=== PATIENT | male | born 1955 | race Caucasian/White ===

== ENCOUNTER 2019-04-05 20:03 | Emergency (ER) | payer OTHER ==
[2019-04-05] MEDS ORDERED: LIDOCAINE 1% MPF 5 ML VIAL ONE ×2 (20:45→21:22)
[2019-04-05] MEDS ORDERED: TETANUS & DIPHTHERIA TOX,ADULT 0.5 ML VIAL ONE (20:50)
[2019-04-05] MEDS ORDERED: AMOX/K CLAV 875 MG TAB ONE (20:50)
--- NOTE | 2019-04-05 21:28 | EDPHYS ---
Physician Documentation [facility] [place] Name: Bowen Kan Age: 63 yrs Sex: Male : 1955 Arrival Date: 04/05/2019 Time: 20:06 Bed 13 Private MD: Jasmina Packer ED Physician Lucy Rousseau HPI: 04/05 21:23 This 63 yrs old Male presents to ER via Ambulatory with complaints of Finger ma2 Injury. 21:23 Trauma demographics: County: The injury occurred in Location of Injury: The injury ma2 occurred at home. Associated injuries: The patient sustained no obvious injury, left index finger tip. Onset: The symptoms/episode began/occurred suddenly, 1 hour(s) ago. The patient has not experienced similar symptoms in the past. Historical: - Allergies: 20:17 No Known Allergies; aa1 - Home Meds: 20:17 Cialis oral oral [Active]; aa1 - PMHx: 20:17 Gastric Reflux; prostate cancer; aa1 - PSHx: 20:17 prostectomy; Knee surgery; aa1 - Immunization history:: Last tetanus immunization: unknown. - Social history:: Smoking status: Patient/guardian denies using tobacco, Patient/guardian denies using alcohol, street drugs, The patient lives with family. - Ebola Screening: : No symptoms or risks identified at this time. - Family history:: not pertinent. ROS: 21:23 Constitutional: Negative for fever, chills, and weight loss, Cardiovascular: Negative ma2 for chest pain, palpitations, and edema, Respiratory: Negative for shortness of breath, cough, wheezing, and pleuritic chest pain, Abdomen/GI: Negative for abdominal pain, nausea, diarrhea, and constipation. 21:23 MS/extremity: Positive for crush injury with laceration . 21:23 All other systems are negative. Exam: 21:23 Constitutional: This is a well developed, well nourished patient who is awake, alert, ma2 and in no acute distress. Chest/axilla: Normal chest wall appearance and motion. Nontender with no deformity. No lesions are appreciated. Cardiovascular: Regular rate and rhythm with a normal S1 and S2. No gallops, murmurs, or rubs. Normal PMI, no JVD. No pulse deficits. Respiratory: Lungs have equal breath sounds bilaterally, clear to auscultation and percussion. No rales, rhonchi or wheezes noted. No increased work of breathing, no retractions or nasal flaring. Abdomen/GI: Soft, non-tender, with normal bowel sounds. No distension or tympany. No guarding or rebound. No evidence of tenderness throughout. Back: No spinal tenderness. No costovertebral tenderness. Full range of motion. 21:23 Musculoskeletal/extremity: Extremities: left middle finger with irregular laceration and fracture of distal phalanz, Circulation is intact in all extremities. Sensation intact. Vital Signs: 20:17 BP 117 / 65; Pulse 77; Resp 16; Temp 97.5; Pulse Ox 99% on R/A; Weight 99.79 kg; Height aa1 6 ft. 3 in. (190.50 cm); Pain 8/10; 21:42 BP 123 / 71; Pulse 75; Resp 17; Temp 97.8; Pulse Ox 99% ; rv 20:17 Body Mass Index 27.50 (99.79 kg, 190.50 cm) aa1 Laceration: 21:23 Wound Repair of 2cm ( 0.8in ) subcutaneous laceration to left hand. Irregularly ma2 shaped.. Skin/tissue flap noted.. Distal neuro/vascular/tendon intact. Anesthesia: Local anesthetic administered with 10 mls of 1% lidocaine. Wound prep: Extensive cleansing. Skin closed with 4 3-0 Prolene using simple sutures and sterile technique. Dressed with Bacitracin. MDM: 20:24 Patient medically screened. ma2 21:23 Differential diagnosis: partial amputation of left finger tip. Data reviewed: vital ma2 signs, nurses notes. Counseling: I had a detailed discussion with the patient and/or guardian regarding: the historical points, exam findings, and any diagnostic results supporting the discharge/admit diagnosis, the presence of at least one elevated blood pressure reading (>120/80) during this emergency department visit, the need for outpatient follow up. Response to treatment: the patient's symptoms have markedly improved after treatment. 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 Exp: rv 12/25/2020. Lot #: [id number]. } Route: IM; Site: right deltoid; 21:43 Follow up: Response: No adverse reaction rv 20:39 Drug: Augmentin 875 mg Route: PO; rv 21:43 Follow up: Response: No adverse reaction rv Disposition: 04/05/19 21:27 Discharged to Home. Impression: Laceration without foreign body of left hand, Displaced fracture of distal phalanx of finger. - Condition is Stable. - Discharge Instructions: Laceration Care, Adult. - Prescriptions for Augmentin 875- 125 mg Oral Tablet - take 1 tablet by ORAL route every 12 hours for 10 days; 20 tablet. Tylenol- Codeine #3 300-30 mg Oral Tablet - take 2 tablet by ORAL route every 6 hours As needed; 30 tablet. - Medication Reconciliation Form, Thank You Letter, Antibiotic Education, Prescription Opioid Use form. - Follow up: Private Physician; When: Tomorrow; Reason: Continuance of care. - Notes: remove sutures in 10 days Signatures: Dispatcher [employer] EDElli Bello RN RN aa1 Lucy Rousseau MD MD ma2 Thiago Whalen RN RN rv Corrections: (The following items were deleted from the chart) 21:43 21:27 04/05/2019 21:27 Discharged to Home. Impression: Laceration without foreign body rv of left hand; Displaced fracture of distal phalanx of finger. Condition is Stable. Discharge Instructions: Laceration Care, Adult. Prescriptions for Augmentin 875-125 mg Oral Tablet - take 1 tablet by ORAL route every 12 hours for 10 days; 20 tablet, Tylenol-Codeine #3 300-30 mg Oral Tablet - take 2 tablet by ORAL route every 6 hours As needed; 30 tablet. and Forms are Medication Reconciliation Form, Thank You Letter, Antibiotic Education, Prescription Opioid Use. Follow up: Private Physician; When: Tomorrow; Reason: Continuance of care. ma2
--- NOTE | 2019-04-05 21:28 | ER ---
Nurse's Notes [facility] Name: Bowen Kan Age: 63 yrs Sex: Male : 1955 Arrival Date: 04/05/2019 Time: 20:06 Bed 13 Private MD: Jasmina Packer Diagnosis: Laceration without foreign body of left hand;Displaced fracture of distal phalanx of finger Presentation: 04/05 20:13 Presenting complaint: Patient states: he smashed his finger with a pry bar. Laceration aa1 noted to L middle finger. Transition of care: patient was not received from another setting of care. Onset of symptoms was April 05, 2019. Risk Assessment: Do you want to hurt yourself or someone else? Patient reports no desire to harm self or others. Initial Sepsis Screen: Does the patient meet any 2 criteria? No. Patient's initial sepsis screen is negative. Does the patient have a suspected source of infection? Yes: Skin breakdown/wound. Care prior to arrival: None. 20:13 Method Of Arrival: Ambulatory aa1 20:13 Acuity: MAN 3 aa1 Triage Assessment: 20:17 General: Appears in no apparent distress. comfortable, Behavior is calm, cooperative, aa1 appropriate for age. 20:46 Injury Description: Crush injury sustained to left middle fingernail. rv Historical: - Allergies: 20:17 No Known Allergies; aa1 - Home Meds: 20:17 Cialis oral oral [Active]; aa1 - PMHx: 20:17 Gastric Reflux; prostate cancer; aa1 - PSHx: 20:17 prostectomy; Knee surgery; aa1 - Immunization history:: Last tetanus immunization: unknown. - Social history:: Smoking status: Patient/guardian denies using tobacco, Patient/guardian denies using alcohol, street drugs, The patient lives with family. - Ebola Screening: : No symptoms or risks identified at this time. - Family history:: not pertinent. Screenin:45 Abuse screen: Denies threats or abuse. Denies injuries from another. Nutritional rv screening: No deficits noted. Tuberculosis screening: No symptoms or risk factors identified. Fall Risk None identified. Assessment: 20:40 General: Appears in no apparent distress. comfortable, Behavior is calm, cooperative. rv Pain: Complains of pain in left hand. Neuro: Level of Consciousness is awake, alert, obeys commands, Oriented to person, place, time, situation. Cardiovascular: Patient's skin is warm and dry. Respiratory: Airway is patent. GI: No signs and/or symptoms were reported involving the gastrointestinal system. : No signs and/or symptoms were reported regarding the genitourinary system. EENT: No signs and/or symptoms were reported regarding the EENT system. Derm: Bruising that is dark purple, on left middle fingernail. Musculoskeletal: Swelling present in left middle fingernail. Vital Signs: 20:17 BP 117 / 65; Pulse 77; Resp 16; Temp 97.5; Pulse Ox 99% on R/A; Weight 99.79 kg; Height aa1 6 ft. 3 in. (190.50 cm); Pain 8/10; 21:42 BP 123 / 71; Pulse 75; Resp 17; Temp 97.8; Pulse Ox 99% ; rv 20:17 Body Mass Index 27.50 (99.79 kg, 190.50 cm) aa1 ED Course: 20:06 Patient arrived in ED. am2 20:06 Jasmina Packer MD is Private Physician. am2 20:16 Triage completed. aa1 20:17 Arm band placed on right wrist. Patient placed in an exam room, on a stretcher. aa1 20:22 Thiago Whalen, CHASTITY is Primary Nurse. rv 20:24 Lucy Rousseau MD is Attending Physician. ma2 20:45 Patient has correct armband on for positive identification. Bed in low position. Call rv light in reach. Side rails up X 1. Pulse ox on. NIBP on. 21:39 Hand Left 3 View XRAY In Process Unspecified. EDMS 21:41 finger splint. Wound care: to laceration located on left middle fingernail was cleaned rv with Hibiclens, irrigated with normal saline, dressed with Neosporin, 4X4s, Patient tolerated well. 21:42 No provider procedures requiring assistance completed. Patient did not have IV access rv during this emergency room visit. 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 Exp: rv 12/25/2020. Lot #: [id number]. } Route: IM; Site: right deltoid; 21:43 Follow up: Response: No adverse reaction rv 20:39 Drug: Augmentin 875 mg Route: PO; rv 21:43 Follow up: Response: No adverse reaction rv Outcome: 21:27 Discharge ordered by . leatha 21:42 Discharged to home ambulatory. rv 21:42 Condition: improved 21:42 Discharge instructions given to patient, family, Instructed on discharge instructions, follow up and referral plans. medication usage, wound care, Demonstrated understanding of instructions, follow-up care, medications, wound care, splint care, Prescriptions given X 2. 21:43 Patient left the ED. rv Signatures: Dispatcher [employer] EDMS Elli Busch RN RN [email or web address] Kristin Braga Mohammad, MD MD ma2 Thiago Whalen RN RN rv
--- NOTE | 2019-04-06 08:42 | RAD REPORT ---
EXAM DESCRIPTION: RAD - Hand Left 3 View - 04/05/2019 9:39 pm CLINICAL HISTORY: Smash injury, blunt force trauma third digit COMPARISON: None. FINDINGS: Comminuted fracture involves the distal third phalanx. Articular surface is not involved. No significant distraction or angulation of the fracture fragments. No retained foreign body seen. Th ere is an unrelated cyst at the base of the third distal phalanx. Elsewhere in the hand no acute findings seen. IMPRESSION: Comminuted fracture third distal phalanx left hand as detailed.
== END 2019-04-05 21:43 | disposition home or self-care (01) ==
LOC: ER 20:03
PROC: 0JQK0ZZ Repair Left Hand Subcutaneous Tissue and Fascia, Open Approach (ICD-10-PCS; principal; 2019-04-05)
DX: S62.631A Displaced fracture of distal phalanx of left index finger, initial encounter for closed fracture (principal); X58.XXXA Exposure to other specified factors, initial encounter; Y93.9 Activity, unspecified; Y92.009 Unspecified place in unspecified non-institutional (private) residence as the place of occurrence of the external cause; Z23 Encounter for immunization; Z85.46 Personal history of malignant neoplasm of prostate
CPT/HCPCS: 90471; 90714; 99284